=== PATIENT | male | born 1970 | race Two or more races ===

== ENCOUNTER 2019-01-20 08:02 | Outpatient (CLI) | payer OTHER ==
[~2019-01-20 08:02] MED LIST: CEFADROXIL500 MG PO; PREDNISONE5 MG/DOSE- PO; TRAMADOL HCL50 MG PO; TRIPLE ANTIBIOT15 GM TP
== END 2019-01-20 08:11 | disposition home or self-care (01) ==
LOC: NUCLEAR 08:02
DX: M19.90 Unspecified osteoarthritis, unspecified site (principal); M81.0 Age-related osteoporosis without current pathological fracture
CPT/HCPCS: 78306; A9503

== ENCOUNTER 2020-02-20 08:03 | Outpatient (CLI) | payer OTHER | END 2020-02-20 08:23 | disposition home or self-care (01) | LOC: NUCLEAR 08:03 | PROVIDERS: ATTEND Internal Medicine Cardiovascular Disease | DX: R07.89 Other chest pain (principal) | CPT/HCPCS: A9500; 93017; 78452 ==